=== PATIENT | female | born 1970 | race Caucasian/White ===

== ENCOUNTER 2016-07-08 18:35 | Emergency (ER) | payer OTHER ==
[2016-07-08 18:41] VITALS: BP 116/73
[2016-07-08] MEDS ORDERED: IBUPROFEN 800 MG TABLET PO ONE (18:43)
--- NOTE | 2016-07-08 18:43 | ER Document Report ---
ED Medical Screen (RME) - General Stated Complaint: LEFT KNEE/RIGHT SHOULDER PAIN Mode of Arrival: Wheelchair Information source: Patient Notes: Patient states that her dog jerked on her causing her to pull her right shoulder and left knee. Patient complains of left knee pain and difficulty with walking. I have greeted and performed a rapid initial assessment of this patient. A comprehensive ED assessment and evaluation of the patient, analysis of test results and completion of the medical decision making process will be conducted by additional ED providers. TRAVEL OUTSIDE OF THE [place] IN LAST 30 DAYS: No - Related Data Allergies/Adverse Reactions: No Known Allergies Allergy (Verified 07/08/16 18:38) Past Medical History Neurological Medical History: Reports: Hx Migraine Endocrine Medical History: Reports: Hx Hypothyroidism Musculoskeltal Medical History: Reports Hx Fibromyalgia, Reports Hx Musculoskeletal Deformity, Reports Hx Musculoskeletal Trauma Psychiatric Medical History: Reports: Hx Anxiety, Hx Depression Traumatic Medical History: Reports: Hx Fractures Past Surgical History: Reports: Hx Abdominal Surgery, Hx Cholecystectomy, Hx Gastric Bypass Surgery, Hx Hysterectomy, Hx Orthopedic Surgery, Hx Thyroid Surgery, Hx Tubal Ligation - Immunizations Immunizations up to date: Yes Hx Diphtheria, Pertussis, Tetanus Vaccination: Yes Physical Exam - Vital signs Vitals: Temp Pulse Resp BP Pulse Ox 98.0 F 64 16 116/73 95 07/08/16 18:39 07/08/16 18:39 07/08/16 18:39 07/08/16 18:39 07/08/16 18:39 - Extremities General upper extremity: Tender - Right shoulder General lower extremity: Tender - Left knee Course - Vital Signs Vital signs: Temp Pulse Resp BP Pulse Ox 98.0 F 64 16 116/73 95 07/08/16 18:39 07/08/16 18:39 07/08/16 18:39 07/08/16 18:39 07/08/16 18:39
--- NOTE | 2016-07-08 19:20 | ER Document Report ---
HPI - HPI Pain Level: 5 - REPRODUCTIVE LMP: n/a Reproductive: DENIES: : - DERM Skin Color: Normal Past Medical History - General Information source: Patient - Social History Smoking Status: Never Smoker Family History: Thyroid Disfunction Patient has suicidal ideation: No Patient has homicidal ideation: No Neurological Medical History: Reports: Hx Migraine Endocrine Medical History: Reports: Hx Hypothyroidism Renal/ Medical History: Denies: Hx Peritoneal Dialysis Musculoskeltal Medical History: Reports Hx Fibromyalgia, Reports Hx Musculoskeletal Deformity, Reports Hx Musculoskeletal Trauma Psychiatric Medical History: Reports: Hx Anxiety, Hx Depression Traumatic Medical History: Reports: Hx Fractures Past Surgical History: Reports: Hx Abdominal Surgery, Hx Cholecystectomy, Hx Gastric Bypass Surgery, Hx Hysterectomy, Hx Orthopedic Surgery, Hx Thyroid Surgery, Hx Tubal Ligation - Immunizations Immunizations up to date: Yes Hx Diphtheria, Pertussis, Tetanus Vaccination: Yes Hx Pneumococcal Vaccination: 05/18/09 Vertical Provider Document - INFECTION CONTROL TRAVEL OUTSIDE OF THE [place] IN LAST 30 DAYS: No - RESPIRATORY O2 Sat by Pulse Oximetry: 95 Course - Vital Signs Vital signs: Temp Pulse Resp BP Pulse Ox 98.0 F 64 16 116/73 95 07/08/16 18:39 07/08/16 18:39 07/08/16 18:39 07/08/16 18:39 07/08/16 18:39
--- NOTE | 2016-07-08 19:33 | ER Document Report ---
ED Medical Screen (RME) - General Chief Complaint: Knee Pain Stated Complaint: LEFT KNEE/RIGHT SHOULDER PAIN Mode of Arrival: Wheelchair Information source: Patient Notes: Patient presents to the emergency department with complaints of right shoulder pain left knee pain. She reports she was walking the dog 4 days ago and dog jerked away hurting her right shoulder and she hurt her left knee pop. She now complains of pain behind the knee. And also left calf pain. No obvious deformity no swelling no erythema no warmth. Patient denies history of DVTs. left knee is swollen. TRAVEL OUTSIDE OF THE [place] IN LAST 30 DAYS: No - Related Data Allergies/Adverse Reactions: No Known Allergies Allergy (Verified 07/08/16 18:38) Past Medical History Neurological Medical History: Reports: Hx Migraine Endocrine Medical History: Reports: Hx Hypothyroidism Renal/ Medical History: Denies: Hx Peritoneal Dialysis Musculoskeltal Medical History: Reports Hx Fibromyalgia, Reports Hx Musculoskeletal Deformity, Reports Hx Musculoskeletal Trauma Psychiatric Medical History: Reports: Hx Anxiety, Hx Depression Traumatic Medical History: Reports: Hx Fractures Past Surgical History: Reports: Hx Abdominal Surgery, Hx Cholecystectomy, Hx Gastric Bypass Surgery, Hx Hysterectomy, Hx Orthopedic Surgery, Hx Thyroid Surgery, Hx Tubal Ligation - Immunizations Immunizations up to date: Yes Hx Diphtheria, Pertussis, Tetanus Vaccination: Yes Physical Exam - Vital signs Vitals: Temp Pulse Resp BP Pulse Ox 98.0 F 64 16 116/73 95 07/08/16 18:39 07/08/16 18:39 07/08/16 18:39 07/08/16 18:39 07/08/16 18:39 Course - Vital Signs Vital signs: Temp Pulse Resp BP Pulse Ox 98.0 F 64 16 116/73 95 07/08/16 18:39 07/08/16 18:39 07/08/16 18:39 07/08/16 18:39 07/08/16 18:39
--- NOTE | 2016-07-08 21:58 | ER Document Report ---
ED General - General Chief Complaint: Knee Pain Stated Complaint: LEFT KNEE/RIGHT SHOULDER PAIN Mode of Arrival: Wheelchair Information source: Patient Notes: Patient presents to the emergency department with complaints of right shoulder pain left knee pain for 4 days. She reports she was walking the dog 4 days ago and dog jerked away hurting her right shoulder and she hurt her left knee pop. She now complains of pain behind the knee. And also c/o left calf pain. No obvious deformity no swelling no erythema no warmth. Negative homans. Patient denies history of DVTs. left knee is swollen. TRAVEL OUTSIDE OF THE [place] IN LAST 30 DAYS: No - HPI Onset: Other - 4 days Onset/Duration: Persistent Quality of pain: Achy Severity: Severe Pain Level: 5 Associated symptoms: None Exacerbated by: Movement, Walking Relieved by: Denies Similar symptoms previously: No Recently seen / treated by doctor: No - Related Data Allergies/Adverse Reactions: No Known Allergies Allergy (Verified 07/08/16 18:38) Past Medical History - General Information source: Patient Last Menstrual Period: years ago - Social History Smoking Status: Never Smoker Cigarette use (# per day): No Frequency of alcohol use: None Drug Abuse: None Family History: Thyroid Disfunction Patient has suicidal ideation: No Patient has homicidal ideation: No Neurological Medical History: Reports: Hx Migraine Endocrine Medical History: Reports: Hx Hypothyroidism Renal/ Medical History: Denies: Hx Peritoneal Dialysis Musculoskeltal Medical History: Reports Hx Fibromyalgia, Reports Hx Musculoskeletal Deformity, Reports Hx Musculoskeletal Trauma Psychiatric Medical History: Reports: Hx Anxiety, Hx Depression Traumatic Medical History: Reports: Hx Fractures Past Surgical History: Reports: Hx Abdominal Surgery, Hx Cholecystectomy, Hx Gastric Bypass Surgery, Hx Hysterectomy, Hx Orthopedic Surgery, Hx Thyroid Surgery, Hx Tubal Ligation - Immunizations Immunizations up to date: Yes Hx Diphtheria, Pertussis, Tetanus Vaccination: Yes Hx Pneumococcal Vaccination: 05/18/09 Review of Systems - Review of Systems Notes: Review HPI for review of systems., All other systems negative Physical Exam - Vital signs Vitals: Temp Pulse Resp BP Pulse Ox 98.0 F 64 16 116/73 95 07/08/16 18:39 07/08/16 18:39 07/08/16 18:39 07/08/16 18:39 07/08/16 18:39 - Notes Notes: PHYSICAL EXAMINATION: GENERAL: Well-appearing, winces when knee palpated HEAD: Atraumatic, normocephalic. EYES: extraocular movements intact, sclera anicteric, conjunctiva are normal. ENT: nares patent, oropharynx clear without exudates. Moist mucous membranes. NECK: Normal range of motion, supple without lymphadenopathy LUNGS: RR Even/unlabored HEART: Regular rate and rhythm without murmurs EXTREMITIES: Normal range of motion, no pitting edema. No cyanosis. left knee slightly swollen posteriorly, no erythema, no warmth NEUROLOGICAL: Cranial nerves grossly intact. Normal sensory/motor exams. PSYCH: Normal mood, normal affect. SKIN: Warm, Dry, normal turgor, no rashes or lesions noted - Extremities General upper extremity: Tender, Normal color, Normal ROM. No: Edema, Normal strength, Other General lower extremity: Tender, Normal color, Normal ROM, Normal strength, Other - slight swelling to back of right knee, no s/s dvt. No: Edema, Sharron's sign Left calf in cm: 38 Right calf in cm: 37 Course - Re-evaluation Re-evalutation: 07/08/16 21:56 Dr. Morales on phone, reports negative Doppler positive Oneal cyst. Neg shoulder and knee xray. 07/08/16 22:04 Patient instructed on all results. Patient instructed on crutches medication and importance of follow-up for Oneal's cyst and follow-up for continued shoulder pain. She verbalized understanding. - Vital Signs Vital signs: Temp Pulse Resp BP Pulse Ox 98.0 F 64 16 116/73 95 07/08/16 18:39 07/08/16 18:39 07/08/16 18:39 07/08/16 18:39 07/08/16 18:39 - Diagnostic Test Radiology reviewed: Image reviewed, Reports reviewed - Negative x-ray for shoulder injury. Discharge - Discharge Clinical Impression: Synovial cyst of knee Left shoulder pain Qualifiers: Chronicity: acute Qualified Code(s): M25.512 - Pain in left shoulder Right knee pain Qualifiers: Chronicity: acute Qualified Code(s): M25.561 - Pain in right knee Condition: Stable Disposition: HOME, SELF-CARE Instructions: Use of Crutches ([facility]), Ice & Elevation ([facility]), Oral Narcotic Medication ([facility]), Oneal's Cyst ([facility]), Family Physicians / Practices Additional Instructions: *You have been evaluated for left shoulder pain, right knee pain, Oneal's cyst *Utilize the crutches *Rest/Ice packs to the shoulder in the knee *Follow up with orthopedics for continued shoulder pain-call for an appointment *Follow up with her primary care provider for recheck within 1 week. *Take medication as prescribed *Return to ED for worsening condition, changes, needs Referrals: [facility] [Provider Group] - Follow up in 1 week
[2016-07-08] MEDS ORDERED: HYDROCODONE/ACETAMINOPHEN 5-325 MG 6 TAB/DSPK PO PRN (21:59)
--- NOTE | 2016-07-09 09:44 | XCELERA REPORT ---
[address] [address] Lower Extremity Venous Evaluation Name: MOON CROWLEY Age: 45 yrs Gender: Female : 1970 Patient Status: Preadmit Patient Location: ER Study Date: 07/08/2016 09:19 PM Procedure: Color flow and duplex imaging of the veins of the left lower extremity as well as the right Common Femoral vein. Reason For Study: c/o pain behind left knee and left calf Ordering Physician: KARLIE TOUSSAINT Performed By: Holly Orlando Right Sided Venous Evaluation The right common femoral vein is fully compressible. Spontaneous and phasic flow is present in the right common femoral vein. Left Sided Venous Evaluation Normal vessel filling wall to wall, compression and augmentation as well as Colour flow down to the infrageniculate veins. Critical Findings Called in to Apple Harris in the ER at about 1900 hours. Interpretation Summary No duplex evidence of DVT or obstruction in the left lower extremity nor in the right Common Femoral vein. : KARLIE TOUSSAINT > Law Morales
== END 2016-07-08 23:20 | disposition home or self-care (01) ==
LOC: ER 18:35
DX: M25.562 Pain in left knee (principal); M25.511 Pain in right shoulder; M79.662 Pain in left lower leg; X50.0XXA Overexertion from strenuous movement or load, initial encounter; Y93.K1 Activity, walking an animal; M71.20 Synovial cyst of popliteal space [Baker], unspecified knee; Z98.84 Bariatric surgery status
CPT/HCPCS: 93971; 99284